=== PATIENT | male | born 1995 | race Caucasian/White ===

== ENCOUNTER 2017-02-08 03:58 | Emergency (ER) | payer OTHER ==
[2017-02-08 04:46] VITALS: BP 146/70
== END 2017-02-08 04:46 | disposition other institution (70) ==
LOC: ED 03:58
DX: Z02.89 Encounter for other administrative examinations (principal)

== ENCOUNTER 2020-06-15 02:34 | Emergency (ER) | payer MEDICAID ==
[~2020-06-15] VITALS: Ht 182.9 cm; Wt 85.3 kg
[2020-06-15 03:05] VITALS: Ht 182.9 cm; Wt 85.3 kg
[2020-06-15 07:14] VITALS: BP 133/99
== END 2020-06-15 07:14 | disposition home or self-care (01) ==
LOC: ED 02:34
DX: H61.21 Impacted cerumen, right ear (principal); H60.91 Unspecified otitis externa, right ear; H66.91 Otitis media, unspecified, right ear